=== PATIENT | female | born 1950 | race Caucasian/White ===

== ENCOUNTER → 2019-10-19 | Outpatient (CLI) | payer MEDICARE, MEDICAID ==
[2019-10-19 08:50] LABS: ALANINE AMINOTRANSFERASE 21 U/L (0-55); ALBUMIN 4.1 GM/DL (3.2-4.5); ALKALINE PHOSPHATASE 73 U/L (40-136); BILIRUBIN,TOTAL 0.4 MG/DL (0.1-1.0); BUN/CREATININE RATIO 22; CALCIUM 9.5 MG/DL (8.5-10.1); CARBON DIOXIDE 25 MMOL/L (21-32); CHLORIDE 104 MMOL/L (98-107); CREATININE SERUM 0.79 MG/DL (0.60-1.30); GFR ESTIMATED > 60; GLUCOSE 114 MG/DL (70-105); POTASSIUM 4.3 MMOL/L (3.6-5.0); SODIUM 141 MMOL/L (135-145); TOTAL PROTEIN 7.1 GM/DL (6.4-8.2)
[2019-10-19 15:01] LABS: CHOLESTEROL 138 MG/DL (< 200); HDL CHOLESTEROL 38 MG/DL (40-60); TRIGLYCERIDES 132 MG/DL (<150); VLDL CHOLESTEROL 26 MG/DL (5-40)
[2019-10-19 15:24] LABS: FREE T4 (FREE THYROXINE) 1.45 NG/DL (0.70-1.48)
== END ==
LOC: LAB FS 08:05
PROVIDERS: ATTEND Family Medicine
DX: E78.5 Hyperlipidemia, unspecified (principal); G25.0 Essential tremor
CPT/HCPCS: 36415; 80053; 80061; 84439; 84443

== ENCOUNTER → 2020-01-18 | Outpatient (CLI) | payer MEDICARE, MEDICAID | LOC: LAB FS 07:49 | PROVIDERS: ATTEND Family Medicine | DX: E03.9 Hypothyroidism, unspecified (principal); R73.09 Other abnormal glucose; E53.8 Deficiency of other specified B group vitamins; E78.5 Hyperlipidemia, unspecified; G25.0 Essential tremor; H93.19 Tinnitus, unspecified ear; Z12.11 Encounter for screening for malignant neoplasm of colon | CPT/HCPCS: 36415; 82607; 83036; 84443 ==

== ENCOUNTER → 2020-05-06 | Outpatient (CLI) | payer MEDICARE, MEDICAID | LOC: LAB FS 08:47 | PROVIDERS: ATTEND Family Medicine | DX: E03.9 Hypothyroidism, unspecified (principal) | CPT/HCPCS: 36415; 84443 ==

== ENCOUNTER → 2020-11-04 | Outpatient (CLI) | payer MEDICARE, MEDICAID ==
[2020-11-04 09:05] LABS: ALKALINE PHOSPHATASE 82 U/L (40-136); BILIRUBIN,TOTAL 0.2 MG/DL (0.1-1.0); BUN/CREATININE RATIO 21; CARBON DIOXIDE 26 MMOL/L (21-32); CHLORIDE 106 MMOL/L (98-107); CREATININE SERUM 0.91 MG/DL (0.60-1.30); GFR ESTIMATED > 60; GLUCOSE 131 MG/DL (70-105); POTASSIUM 4.4 MMOL/L (3.6-5.0); SODIUM 141 MMOL/L (135-145)
[2020-11-04 09:06] LABS: ALANINE AMINOTRANSFERASE 15 U/L (0-55); ALBUMIN 4.3 GM/DL (3.2-4.5); TOTAL PROTEIN 7.2 GM/DL (6.4-8.2)
== END ==
LOC: LAB FS 07:54
PROVIDERS: ATTEND Family Medicine
DX: E03.9 Hypothyroidism, unspecified (principal); E53.8 Deficiency of other specified B group vitamins; I10 Essential (primary) hypertension
CPT/HCPCS: 36415; 80053; 82607; 84443

== ENCOUNTER → 2021-05-06 | Outpatient (CLI) | payer MEDICARE, MEDICAID ==
[2021-05-06 09:07] LABS: POTASSIUM 4.2 MMOL/L (3.6-5.0)
[2021-05-06 09:08] LABS: BILIRUBIN,TOTAL 0.3 MG/DL (0.1-1.0); CALCIUM 9.2 MG/DL (8.5-10.1); CREATININE SERUM 0.93 MG/DL (0.60-1.30)
[2021-05-06 09:09] LABS: ALBUMIN 4.3 GM/DL (3.2-4.5); TOTAL PROTEIN 7.3 GM/DL (6.4-8.2)
== END ==
LOC: LAB FS 08:07
PROVIDERS: ATTEND Family Medicine
DX: E03.9 Hypothyroidism, unspecified (principal); E78.2 Mixed hyperlipidemia; R73.9 Hyperglycemia, unspecified
CPT/HCPCS: 36415; 80053; 80061; 83036; 84443

== ENCOUNTER 2021-09-12 09:18 | Emergency (ER) | payer MEDICARE, MEDICAID ==
[~2021-09-12] VITALS: Ht 170.2 cm; Wt 81.7 kg
[2021-09-12] MEDS ORDERED: TETANUS,DIPTH,PERTUSS P/F (BOOSTRIX) 0.5 ML VIAL IM ONE (09:45)
--- NOTE | 2021-09-12 09:56 | Diagnostic Imaging Report ---
Indication: Left forearm injury 2 views of left forearm show no fracture or dislocation. IMPRESSION: Negative left forearm Dictated by: Dictated on workstation # [id number]
--- NOTE | 2021-09-12 10:08 | ED Upper Extremity ---
General Chief Complaint: Upper Extremity Stated Complaint: LT ARM INJ Nursing Triage Note: PT AMBULATE TO ROOM [facility] WITH C/O LEFT ARM PAIN ARM. PT REPORTS SHE WAS WALKING HER DOG X5 DAYS AGO AND THE DOG LEAD WAS WRAPPED AROUND HER LEFT WRIST AND THE DOG PULLED HURTING THE PT'S ARM. PT REPORTS SHE TOOK PAIN MEDS X2 DAYS AGO. Source: patient Exam Limitations: no limitations History of Present Illness Date Seen by Provider: Sep 12, 2021 Time Seen by Provider: 09:45 Initial Comments Patient is a 71-year-old right-handed female who presents with left forearm pain. Patient was walking her dog by a leash 5 days ago when she fell off face forward. Patient landed on outstretched arms and hit her face. She initially reports left wrist pain which has significantly improved but complains of residual forearm pain worse over mid distal forearm upon supination and pronation. She denies shoulder elbow wrist and hand pain. No other symptoms or complaints. Onset: just prior to arrival, last week Pain/Injury Location: left forearm Method of Injury: direct blow Modifying Factors: Improves With Immobilization, Improves With Movement, Improves With Pain Medication Allergies and Home Medications Allergies Coded Allergies: No Known Drug Allergies (Unverified , 09/12/21) Patient Home Medication List Home Medication List Reviewed: Yes Review of Systems Constitutional: see HPI EENTM: see HPI Respiratory: see HPI Cardiovascular: see HPI Gastrointestinal: see HPI Genitourinary: see HPI Musculoskeletal: see HPI Skin: see HPI Psychiatric/Neurological: See HPI All Other Systems Reviewed Negative Unless Noted: Yes Past Bxlbxie-[id number]-[id number] Hx Patient Social History Tobacco Use?: Yes Smoking Status: Never a Smoker Smokeless Tobacco Frequency: Never a User Use of E-Cig and/or Vaping dev: No Use of E-Cig and/or Vaping Ayden: Never a User Substance use?: No Alcohol Use?: No Pt feels they are or have been: No Physical Exam Vital Signs Vital Signs - First Documented 09/12/21 09:27 Temp 35.9 Pulse 59 Resp 17 B/P (MAP) 159/89 (112) O2 Delivery Room Air Capillary Refill : Less Than 3 Seconds Height, Weight, BMI Height: '" Weight: lbs. oz. kg; 28.00 BMI Method: General Appearance: WD/WN, no apparent distress HEENT: PERRL/EOMI, normal ENT inspection Neck: full range of motion, supple Cardiovascular: normal peripheral pulses, regular rate, rhythm Respiratory: lungs clear Shoulder: normal inspection, non-tender Elbow/Forearm: Left (No bony tenderness deformity or pain with range of motion elbow, soft tissue tenderness with pronation of forearm.) Wrist: Yes abrasions; No asymmetry, No bone tenderness, No deformity, No limited ROM; Yes pain (Minimal soft tissue tenderness on exam), Yes soft tissue tenderness Hand: normal inspection, non-tender, Left Neurologic/Psychiatric: alert, oriented x 3 Skin: normal color, other (Light abrasions over dorsum of left wrist.) Progress/Results/Core Measures Results/Orders My Orders Orders - JUAN ALCOCER DO Forearm 2 View Left (09/12/21 09:43) Dipht,Pertuss(Acell),Tet Adult (Boostrix (09/12/21 09:45) Vital Signs/I&O 09/12/21 09:27 Temp 35.9 Pulse 59 Resp 17 B/P (MAP) 159/89 (112) O2 Delivery Room Air Blood Pressure Mean: 112 Departure Communication (Admissions) Left forearm: No acute fracture or bony injury per radiology report Left forearm injury with soft tissue tenderness without acute finding on x-ray film. Recommendations for supportive care with PCP follow-up as needed Impression Primary Impression: Sprain of left forearm Disposition: 01 HOME, SELF-CARE Condition: Stable Departure-Patient Inst. Decision time for Depature: 10:23 Referrals: LOKI THOMPSON MD (PCP/Family) Primary Care Physician Patient Instructions: Muscle Strain (DC) Add. Discharge Instructions: You were evaluated in the emergency department for fall with wrist forearm and elbow injury. An x-ray was obtained does not show an acute bony fracture or dislocation. Your exam is consistent with forearm muscle strain. Please take 600 mg of ibuprofen 3 times daily and use arm sling to restrict left arm use. Follow-up with your PCP 5 to 7 days as needed. Return to the ED if new or worsening symptoms. All discharge instructions reviewed with patient and/or family. Voiced understanding. JUAN ALCOCER DO Sep 12, 2021 10:08
[2021-09-12 10:37] VITALS: BP 149/78
== END 2021-09-12 10:37 | disposition home or self-care (01) ==
LOC: EDUNIT# 09:18 → ER FS 09:20
DX: S53.402A Unspecified sprain of left elbow, initial encounter (principal); S60.812A Abrasion of left wrist, initial encounter; Z72.0 Tobacco use; Z23 Encounter for immunization; W22.8XXA Striking against or struck by other objects, initial encounter
CPT/HCPCS: 90715

== ENCOUNTER → 2021-11-07 | Outpatient (CLI) | payer MEDICARE, MEDICAID ==
[2021-11-07 11:17] LABS: ALBUMIN 4.3 GM/DL (3.2-4.5); BILIRUBIN,TOTAL 0.3 MG/DL (0.1-1.0); CALCIUM 9.3 MG/DL (8.5-10.1); CREATININE SERUM 0.89 MG/DL (0.60-1.30); POTASSIUM 4.6 MMOL/L (3.6-5.0)
== END ==
LOC: LAB FS 08:34
PROVIDERS: ATTEND Family Medicine
DX: E11.9 Type 2 diabetes mellitus without complications (principal); E78.2 Mixed hyperlipidemia
CPT/HCPCS: 36415; 80053; 80061; 83036

== ENCOUNTER → 2021-11-17 | Outpatient (CLI) | payer MEDICARE, MEDICAID ==
[2021-11-18 01:26] LABS: FREE T4 (FREE THYROXINE) 1.13 NG/DL (0.70-1.48)
== END ==
LOC: LAB FS 14:17
PROVIDERS: ATTEND Family Medicine
DX: E07.9 Disorder of thyroid, unspecified (principal)
CPT/HCPCS: 36415; 84439; 84443

== ENCOUNTER → 2022-05-06 | Outpatient (CLI) | payer MEDICARE, MEDICAID ==
[2022-05-06 15:06] LABS: BASOPHILS % (AUTO) 1 % (0-10); EOSINOPHILS # (AUTO) 0.1 10^3/uL (0.0-0.3); EOSINOPHILS % (AUTO) 1 % (0-10); HEMATOCRIT 39 % (35-52); HEMOGLOBIN 13.5 g/dL (11.5-16.0); LYMPHOCYTES # (AUTO) 3.5 10^3/uL (1.0-4.0); LYMPHOCYTES % (AUTO) 41 % (12-44); MEAN CORPUSCULAR HEMOGLOBIN 31 pg (25-34); MEAN CORPUSCULAR HGB CONC 34 g/dL (32-36); MEAN CORPUSCULAR VOLUME 91 fL (80-99); MEAN PLATELET VOLUME 10.7 fL (9.0-12.2); MONOCYTES # (AUTO) 0.7 10^3/uL (0.0-1.0); MONOCYTES % (AUTO) 8 % (0-12); NEUTROPHILS # (AUTO) 4.2 10^3/uL (1.8-7.8); NEUTROPHILS % (AUTO) 49 % (42-75); PLATELET COUNT 274 10^3/uL (130-400); WHITE BLOOD COUNT 8.5 10^3/uL (4.3-11.0)
[2022-05-06 15:32] LABS: POTASSIUM 4.3 MMOL/L (3.6-5.0)
[2022-05-06 15:33] LABS: ALBUMIN 4.2 GM/DL (3.2-4.5); BILIRUBIN,TOTAL 0.2 MG/DL (0.1-1.0); CALCIUM 9.1 MG/DL (8.5-10.1); CREATININE SERUM 0.89 MG/DL (0.60-1.30); TOTAL PROTEIN 7.1 GM/DL (6.4-8.2)
== END ==
LOC: LAB FS 14:38
PROVIDERS: ATTEND Family Medicine
DX: Z23 Encounter for immunization (principal); E03.9 Hypothyroidism, unspecified; K29.50 Unspecified chronic gastritis without bleeding
CPT/HCPCS: 36415; 80053; 83690; 84443; 85025